=== PATIENT | female | born 1965 | race Caucasian/White ===

== ENCOUNTER → 2019-12-07 | Outpatient (CLI) | payer OTHER, BC ==
--- NOTE | 2019-12-07 14:11 | RAD ---
3 views lumbar spine without comparison for low back pain. FINDINGS: There is no fracture, or acute osseous abnormality identified. Multilevel degenerative changes are present with small anterior osteophytes at several levels. There is mild narrowing of the L5-S1 intervertebral disc space as well as the L1-2 and T12-L1 intervertebral disc spaces. There is moderate facet arthrosis involving the lower lumbar levels. No alignment abnormality. IMPRESSION: 1. No acute osseous or alignment abnormality of the lumbar spine. 2. Mild multilevel degenerative disc disease and facet arthrosis. Electronically signed by: Godfrey Flores MD (12/07/2019 2:08 PM) [id number]
== END | disposition home or self-care (01) ==
LOC: RAD 11:20
PROVIDERS: ATTEND Psychiatry & Neurology Neurology
DX: M47.816 Spondylosis without myelopathy or radiculopathy, lumbar region (principal); M51.36 Other intervertebral disc degeneration, lumbar region; M48.07 Spinal stenosis, lumbosacral region; M25.78 Osteophyte, vertebrae
CPT/HCPCS: 72100